=== PATIENT | female | born 1990 | race Caucasian/White ===

== ENCOUNTER 2017-04-15 11:40 | Emergency (ER) | payer OTHER ==
[~2017-04-15] VITALS: Ht 177.8 cm; Wt 64.0 kg
[2017-04-15] MEDS ORDERED: PRENATA CHEWAB1 EACH PO (11:58)
[2017-04-15] MEDS ORDERED: BUPRENORPHINE HC8 MG SL (11:58)
== END 2017-04-15 12:06 | disposition home or self-care (01) ==
LOC: ED 11:40
DX: Z00.8 Encounter for other general examination (principal)

== ENCOUNTER 2017-08-16 11:32 | Inpatient (IN) | payer OTHER ==
[~2017-08-16 11:32] MED LIST: BUPRENORPHINE HC8 MG SL; PRENATA CHEWAB1 EACH PO
--- NOTE | 2017-08-17 07:29 | PR ---
[facility] [address] [place], [place] [address] Signed PP Progress Notes Datetime Report Generated by HOANG: 08/17/2017 07:29 SUBJECTIVE: [id number] Pain: Within normal limits Vital Signs: [id number] Vital Signs: Reviewed; Within Normal Limits EXAM: [id number] Cardiovascular: Not Done Respiratory: Not Done Abdomen/Uterus: Abnormal Lochia: Normal Vulva/Perineum: Not Done Breasts: Not Done CVA Tenderness: Not Done Extremities: Normal Incision: Not Applicable Progress: Normal Exam Comments: Fundus firm, NT @ U-1. H/H 13.3/39.2, WBC 15.9, plat 291k IMPRESSION/PLAN/PROCEDURES: [id number] Impression: Normal progression Plan: Continue present management Progress Notes: Doing well. Discussed smoking and the use of nicotine patch. Signing Physician: Madelyn Aguilar MD CC: *Electronically Signed* 08/17/17 0729 MADELYN AGUILAR MD PATIENT NAME: CALLY ISIDRO MILO PROGRESS NOTE DATE OF : 89 PHYSICIAN: MADELYN AGUILAR MD RPT #: [id number] REPORT IS CONFIDENTIAL AND NOT TO BE RELEASED WITHOUT AUTHORIZATION
--- NOTE | 2017-08-18 09:38 | PR ---
[facility] [address] [place], [place] [address] Signed PP Progress Notes Datetime Report Generated by CPN: 08/18/2017 09:38 SUBJECTIVE: [id number] Pain: Within normal limits Nausea/Vomiting: Denies Flatus: Yes Vital Signs: [id number] Vital Signs: Reviewed; Within Normal Limits EXAM: [id number] Cardiovascular: Normal Respiratory: Normal Abdomen/Uterus: Normal Lochia: Normal Vulva/Perineum: Normal Breasts: Normal CVA Tenderness: Normal Extremities: Normal Incision: Not Applicable Progress: Normal Exam Comments: Fundus firm, NT @ U-1. H/H 13.3/39.2, WBC 15.9, plat 291k IMPRESSION/PLAN/PROCEDURES: [id number] Impression: Normal progression Plan: Discharge Procedures: None Progress Notes: patient doing well. 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
== END 2017-08-18 10:15 | disposition home or self-care (01) | DRG 774 ==
LOC: FBCO 11:32 → FBC 12:16 → FBCO 08-21 14:13
PROVIDERS: ADMIT Obstetrics & Gynecology
PROC: 10E0XZZ Delivery of Products of Conception, External Approach (ICD-10-PCS; principal; 2017-08-16)
PROC: 0DQR0ZZ Repair Anal Sphincter, Open Approach (ICD-10-PCS; 2017-08-16)
PROC: 0W8NXZZ Division of Female Perineum, External Approach (ICD-10-PCS; 2017-08-16)
DX: O42.02 Full-term premature rupture of membranes, onset of labor within 24 hours of rupture (principal); O98.42 Viral hepatitis complicating childbirth; O70.20 Third degree perineal laceration during delivery, unspecified; O99.334 Smoking (tobacco) complicating childbirth; F17.210 Nicotine dependence, cigarettes, uncomplicated; B19.20 Unspecified viral hepatitis C without hepatic coma; Z3A.39 39 weeks gestation of pregnancy; Z37.0 Single live birth
CPT/HCPCS: 36415; 82803; 85027; 99406; J2590